=== PATIENT | female | born 1990 | race Caucasian/White ===

== ENCOUNTER 2019-12-27 06:26 | Day surgery (SDC) | payer MEDICAID, SELFPAY ==
[2019-12-26 08:12] VITALS: BMI 39.4
[2019-12-27 06:49] LABS: OR HCG Qualitative Urine Negative (Negative)
[2019-12-27 06:51] VITALS: BP 112/66; PULSE 95; RESP 18; TEMP 36.1; O2SAT 97
[2019-12-27] MEDS: sodium chloride 0.9% 1,000 ML 30 ML IV (07:14)
--- NOTE | 2019-12-27 07:18 | P.ANES_ITS ---
Pre-Anesthetic Assessment Pre-Anesthetic Assessment: Height/Weight: Height 1.63 m Weight 104.326 kg Temp Pulse Resp BP Pulse Ox 97.0 F L 95 18 112/66 97 12/27/19 06:51 12/27/19 06:51 12/27/19 06:51 12/27/19 06:51 12/27/19 06:51 Preop Diagnosis: Left Carpal Tunnel syndrome Proposed Procedure: Operation Date: 12/27/19 07:50 Proposed Procedures p Carpal Tunnel Release 05186 G56.01(Left) - Erasto Swartz MD Familial anesthetic complications: none Was Beta Brett taken within 24 hour s: N/A Last intake: Intake Last Liquid Date 12/26/19 Last Liquid Time 20:00 Last Solid Date 12/26/19 Last Solid Time 20:00 Social: Social History: No alcohol Comment: Vapes multiple times per days Exam: Pre-Anes Outpt Exam: alert, oriented x 3, clear to auscultation bilaterally and regular rate & rhythm Airway: Cervical ROM: WNL MP: 1 Dentition: Full Pulmonary: Pulmonary: URI Comments: Sinusitis 2-3 weeks ago, no coughing, no fever, resolved now CV/HEM: CV/HEM: None reported : : None reported Hepatic: Comments: fatty liver disease GI: GI: None reported Metabolic: Metabolic: Morbid obesity Musc/skel: [facility] [place]/skel: None reported Neuropsych: Neuropsych: None reported Anesthetic Plan: ASA status: II Anesthesia: MAC Meds/Allergies Current Medications: Current Medications Generic Name Dose Route Start Last Admin Trade Name Freq PRN Reason Stop Dose Admin Sodium Chloride 1,000 mls @ 30 ml s/hr 12/27/19 06:45 12/27/19 07:14 Sodium Chloride 0.9% IV 12/28/19 06:44 30 mls/hr .Q24H GABINO Administration PFSH Anesthesia PFSH: Family History (Updated 12/19/19 @ 08:20 by Fay Hayes LPN) Other Diabetes Heart disease Hypertension Stroke Social History (Updated 12/19/19 @ 08:21 by Fay Hayes LPN) Smoking and tobacco status: current every day smoker e-cigarettes E-Cigarette Details: vaporizer device and with nicotine Alcohol intake: current Alcohol intake frequency: 0-2 Drinks per Day Female Reproductive History: Date of last menstrual period: 05/18/18 Data Anesthesia Other Labs: Laboratory Results - last 48 hr 12/27/19 06:38 Urine HCG, Qual Negative Cardiac Studies: No Data to Display
--- NOTE | 2019-12-27 08:22 | PM.HPUD ---
H&P update H&P Update: DATE OF SURGERY/PROCEDURE: 12/27/19 DATE H&P PERFORMED: 12/19/19 H&P UPDATE INFORMATION: H&P completed within last 30 days and No changes to prior documentation PREOP DIAGNOSIS: Left carpal tunnel syndrome PRIMARY INDICATION FOR PROCEDURE: Left arm pain and numbness. EMG nerve conduction studies showing carpal tunnel syndrome has failed conservative management. PLANNED PROCEDURE: Operation Date: 12/27/19 07:50 Proposed Procedures p Carpal Tunnel Release [id number] G56.01(Left) - Erasto Swartz MD Full H&P HPI: PRIMARY INDICATION/DIAGNOSIS FOR SURGICAL PROCEDURE: The patient is here for a scheduled left carpal tunnel release. Been previously counseled Medications/Allergies: Current Medications: Current Medications Generic Name Dose Route Start Last Admin Trade Name Freq PRN Reason Stop Dose Admin Sodium Chloride 1,000 mls @ 30 ml s/hr 12/27/19 06:45 12/27/19 07:14 Sodium Chloride 0.9% IV 12/28/19 06:44 30 mls/hr .Q24H GABINO Administration Perinent History: Family History: Family History (Updated 12/19/19 @ 08:20 by Fay Hayes LPN) Other Diabetes Heart disease Hypertension Stroke Social History: Social History Smoking and tobacco status: current every day smoker e-cigarettes E-Cigarette Details: vaporizer device and with nicotine Alcohol intake: current Alcohol intake frequency: 0-2 Drinks per Day
[2019-12-27 09:23] VITALS: BP 95/60; PULSE 89; RESP 18; TEMP 36.4; O2SAT 96
--- NOTE | 2019-12-27 09:32 | P.OP_ITS ---
Operative Report Date of procedure: 12/27/19 Pre-op Diagnosis: Left carpal tunnel syndrome Post-op diagnosis: same Post-op Findings: No masses or space-occupying lesions are identified within the carpal tunnel Procedure Done: Left carpal tunnel release Pathology: none sent Surgeon: Erasto Swartz Anesthesia: Local (Kathrine block) Estimated blood loss (mL): 5 Tourniquet time (min): 25 Complications: None Findings: No masses or space-occupying lesions were seen within the carpal tunnel Condition: stable Disposition: same day Procedure: Patient was taken to the operating room and anesthesia provided by the anesthesia service. She was prepped and draped with the arm exposed. A timeout was performed. A 3 cm long incision was made in line with the fourth ray from the distal edge of the carpal tunnel extending proximally. The subcutaneous fat and palmar fascia was divided with a scalpel blade. Under l oupe magnification the ulnar neurovascular bundle was identified distally. A hemostat could be passed under the transverse carpal ligament allowing the distal 25% to be divided. A slotted guide was then passed beneath the transverse carpal ligament and the middle 50% divided. Blunt scissors were then passed over the guide freeing the proximal ligament. The tourniquet was deflated. Hemostasis provided with electrocautery. Wound edges were infiltrated with 10 cc of a half percent Marcaine solution. Skin edges were reapproximated with 3-0 Prolene. Sterile dressings were applied. The patient was taken to the recovery room in stable condition
[2019-12-27 09:47] VITALS: BP 105/81; PULSE 87; RESP 18; TEMP 36.4; O2SAT 98
== END 2019-12-27 09:58 | disposition home or self-care (01) ==
PROVIDERS: Anesthesiology; PCP Family Medicine; Visit Provider Orthopaedic Surgery
PROC: (CPT 64721; principal; 2019-12-27 07:50)
DX: G56.02 Carpal tunnel syndrome, left upper limb (principal); F17.290 Nicotine dependence, other tobacco product, uncomplicated; Z82.49 Family history of ischemic heart disease and other diseases of the circulatory system; Z83.3 Family history of diabetes mellitus; E66.01 Morbid (severe) obesity due to excess calories; Z68.39 Body mass index [BMI] 39.0-39.9, adult
CPT/HCPCS: 64721; 12345; 81025; 84703; J0690; J2001; J2704; J3010; J3490; J7030

== ENCOUNTER 2019-12-31 19:58 | Emergency (ER) | payer MEDICAID, SELFPAY ==
[2019-12-31] VITALS (9 sets, daily range): BP systolic 106–138; BP diastolic 69–83; PULSE 101–113; RESP 12–38; TEMP 37.2; O2SAT 83–97; BMI 40.3
--- NOTE | 2019-12-31 20:28 | ED_ITS ---
Entered by Luz Land, acting as scribe for Jaime Mendoza DO HPI - Fever General: Chief Complaint: Fever Stated Complaint: FEVER/CP POST OP Time Seen by Provider: 12/31/19 20:26 Source: patient and family Mode of arrival: ambulatory History of Present Illness: HPI Narrative: 29 y/o female presents to the ED with complaint of fever and sore throat. Pt states she had carpal tunnel sx last week. Her symptoms started shortly after. She denies any complications around the surgical site. She has had chills and congestion. MD elicited complaint: fever Onset (ago): day(s) Context: recent procedure Relieving factors: nothing Associated symptoms: Reports chills, headache(s), nasal congestion and sore throat; Deny abdominal pain, dysuria, nausea or vomiting Review of Systems Const: Reports: fever, chills, body aches and fatigue Eyes: Denies: change in vision or blurry vision ENMT: Reports: nasal congestion; Denies: swelling of lips/tongue, bleeding gums, dental pain, Change in hearing or nose bleeds Card: Denies: palpitations, irregular heart rhythm, edema, swelling of feet/ankles, shortness of breath on exertion or shortness of breath when lying down Resp: Denies: shortness of breath or wheezing GI: Denies: abdominal pain, nausea, vomiting, rectal pain, blood in stool or black tarry stool : Denies: painful urination, urinary frequency, urinary urgency or blood in urine Musc: Denies: neck pain, back pain, redness or joint warmth Skin/Breast: Denies: rash, itching or redness Neuro: Reports: headache; Denies: dizziness Psych: Denies: anxiety PFSH ED PFSH: Statuses (acute, chronic, etc) shown below reflect problem list status as previously entered and may not be historically accurate Family History (Updated 12/19/19 @ 08:20 by Fay Hayes LPN) Other Diabetes Heart disease Hypertension Stroke Social History (Updated 12/19/19 @ 08:21 by Fay Hayes LPN) Smoking and tobacco status: current every day smoker e-cigarettes E-Cigarette Details: vaporizer device and with nicotine Alcohol intake: current Alcohol intake frequency: 0-2 Drinks per Day Female Reproductive History: Date of last menstrual period: 05/29/18 Physical Exam Const: GENERAL APPEARANCE: well developed ORIENTATION/CONSCIOUSNESS: Yes oriented to person, Yes oriented to place and Yes oriented to time HENMT: COMMON NORMALS: normocephalic, external ears normal and external nose normal HEAD & SCALP: normocephalic; no scalp tenderness FACE & SINUS: normal facial exam NOSE: external nose normal and no nasal discharge EXTERNAL EAR: Yes external ears normal MOUTH: tongue normal and other (posterior oral pharynx redness) TEETH & GINGIVA: no abnormal tooth and associated gingiva THROAT: posterior oropharynx normal; no peritonsillar mass Eye: COMMON NORMALS: PERRL, EOMs intact bilaterally and conjunctivae normal EYELID: eyelids normal CONJUNCTIVA: Yes conjunctivae normal PUPIL: Yes PERRL Neck/C-Spine: COMMON NORMALS: full ROM GENERAL: No tracheal deviation CERVICAL SPINE: Yes normal cervical lordosis and No cervical spine tenderness Chest: COMMONS NORMALS: inspection of chest normal CHEST: No tenderness Resp: COMMON NORMALS: clear to auscultation bilaterally EFFORT & INSPECTION: No tachypneic, No respiratory distress, No retractions, No uses accessory muscles and No tracheal deviation AUSCULTATION: clear to auscultation bilaterally, no rhonchi, no wheezes and lung sounds not diminished Cardio: COMMON NORMALS: regular rate and regular rhythm RATE: regular rate RHYTHM: regular rhythm HEART SOUNDS: no murmurs PERIPHERAL PULSES: radial pulses present GI: INSPECTION: No abdominal distension AUSCULTATION: No hyperactive bowel sounds and No hypoactive bowel sounds PALPATION: No guarding and No rigid PERCUSSION: no dullness to percussion and no tympanic to percussion : COMMON NORMALS: Yes no CVA tenderness BLADDER/KIDNEY EXAM: Yes no CVA tenderness Back/Pelvis: COMMON NORMALS: no CVA tenderness Extremity: LEFT UPPER EXTREMITY: Yes wrist (carpal tunnel inscision healing well) Neuro: SENSORIUM/ORIENTATION: Yes oriented to person, Yes oriented to place and Yes oriented to time Psych: COMMON NORMALS: mental status grossly normal Skin: COMMON NORMALS: no rashes or lesions noted GENERAL SKIN EXAM: no rashes or lesions noted Course ED course: Patient was mildly tachycardic. She had an increased temperature. Chest x-ray was negative. Flu and strep swabs are negative. Because of this, lab work was drawn. White blood cell count is 5. Other labs are benign. D- dimer was drawn because of tachycardia and mildly low oxygen, and it was negative. She had improvement while she was here. She likely has a viral illness. She will be allowed home. Vital Signs: Vital signs: Vital Signs Temperature 98.9 F 12/31/19 20:19 Pulse Rate 87 01/01/20 00:36 Respiratory Rate 16 01/01/20 00:36 Blood Pressure 109/67 01/01/20 00:36 Pulse Oximetry 96 01/01/20 00:36 MDM - Fever Lab Data: Labs: Lab Results 12/31/19 12/31/19 12/31/19 Range/Units 20:50 20:50 21:38 WBC 5.0 (4.0-10.0) 10^3/ uL RBC 4.29 (4.1-5.3) 10^6/u L Hgb 13.1 (11.5-15.3) g/dL Hct 38.7 (37.0-47.0) % MCV 90.2 (81-99) fL MCH 30.5 (28.0-34.0) pg MCHC 33.9 (30.0-36.0) g/dL RDW 12.1 (12.1-15.1) % Plt Count 169 (130-400) 10^3/c mm MPV 10.5 H (7.4-10.4) fL Neut % (Auto) 72.4 % Lymph % (Auto) 15.6 % [place] % (Auto) 10.8 % Eos % (Auto) 0.4 % Baso % (Auto) 0.2 % Neut # (Auto) 3.6 (1.8-7.7) 10^3/u L Lymph # (Auto) 0.8 (0.8-4.8) 10^3/u L [place] # (Auto) 0.5 (0.2-0.9) 10^3/u L Eos # (Auto) 0.0 (0.0-0.8) 10^3/u L Baso # (Auto) 0.0 (0.0-0.1) 10^3/u L Nucleated RBC % (a uto) 0 % Nucleated RBCs # 0.0 /100WBC D-Dimer (0-0.59) ug/mIFE U Sodium (136-145) mmol/L Potassium (3.5-5.1) mmol/L Chloride (98-107) mmol/L Carbon Dioxide (22-29) mmol/L Anion Gap (5-19) BUN (6-20) mg/dL Creatinine (0.5-0.9) mg/dL GFR Calculation (90-130) mL/min Glucose (74-109) mg/dL Calcium (8.5-10.5) mg/dL Total Bilirubin (0.15-1.2) mg/dL AST (0-32) U/L ALT (0-33) U/L Alkaline Phosphata se (35-105) IU/L Troponin T Baselin e (0-10) ng/mL Troponin T 120 Min tribal (0-10) ng/mL Delta Troponin T (0-10) ABS# Total Protein (6.6-8.7) g/dL Albumin (3.5-5.2) g/dL Globulin (1.3-4.6) g/dL HCG, Qual (Negative) Urine Color (Yellow) Urine Appearance (CLEAR) Urine pH (5-7) Ur Specific Gravit y (1.005-1.030) Urine Protein (Negative) Urine Glucose (UA) (Normal) Urine Ketones (Negative) Urine Occult Blood (Negative) Urine Nitrate (Negative) Urine Bilirubin (NEGATIVE) Urine Urobilinogen (Negative) mg/dL Ur Leukocyte Preethi ase (Negative) Urine RBC (0-2) /hpf Urine WBC (0-5) /hpf Ur Squamous Epith Cells (0-5) Urine Bacteria (NONE) Urine Mucus Influenza Type A A g Negative (Negative) POC Influenza B Ag Negative (Negative) Group A Strep Rapi d Negative (Negative) 12/31/19 12/31/19 12/31/19 Range/Units 21:38 21:38 21:38 WBC (4.0-10.0) 10^3/ uL RBC (4.1-5.3) 10^6/u L Hgb (11.5-15.3) g/dL Hct (37.0-47.0) % MCV (81-99) fL MCH (28.0-34.0) pg MCHC (30.0-36.0) g/dL RDW (12.1-15.1) % Plt Count (130-400) 10^3/c mm MPV (7.4-10.4) fL Neut % (Auto) % Lymph % (Auto) % [place] % (Auto) % Eos % (Auto) % Baso % (Auto) % Neut # (Auto) (1.8-7.7) 10^3/u L Lymph # (Auto) (0.8-4.8) 10^3/u L [place] # (Auto) (0.2-0.9) 10^3/u L Eos # (Auto) (0.0-0.8) 10^3/u L Baso # (Auto) (0.0-0.1) 10^3/u L Nucleated RBC % (a uto) % Nucleated RBCs # /100WBC D-Dimer 0.40 (0-0.59) ug/mIFE U Sodium 136 (136-145) mmol/L Potassium 3.8 (3.5-5.1) mmol/L Chloride 97 L (98-107) mmol/L Carbon Dioxide 25 (22-29) mmol/L Anion Gap 17.8 (5-19) BUN 13 (6-20) mg/dL Creatinine 0.9 (0.5-0.9) mg/dL GFR Calculation 74.6 L (90-130) mL/min Glucose 114 H (74-109) mg/dL Calcium 9.8 (8.5-10.5) mg/dL Total Bilirubin 0.4 (0.15-1.2) mg/dL AST 28 (0-32) U/L ALT 32 (0-33) U/L Alkaline Phosphata se 71 (35-105) IU/L Troponin T Baselin e 6 (0-10) ng/mL Troponin T 120 Min tribal (0-10) ng/mL Delta Troponin T (0-10) ABS# Total Protein 7.5 (6.6-8.7) g/dL Albumin 4.4 (3.5-5.2) g/dL Globulin 3.1 (1.3-4.6) g/dL HCG, Qual (Negative) Urine Color (Yellow) Urine Appearance (CLEAR) Urine pH (5-7) Ur Specific Gravit y (1.005-1.030) Urine Protein (Negative) Urine Glucose (UA) (Normal) Urine Ketones (Negative) Urine Occult Blood (Negative) Urine Nitrate (Negative) Urine Bilirubin (NEGATIVE) Urine Urobilinogen (Negative) mg/dL Ur Leukocyte Preethi ase (Negative) Urine RBC (0-2) /hpf Urine WBC (0-5) /hpf Ur Squamous Epith Cells (0-5) Urine Bacteria (NONE) Urine Mucus Influenza Type A A g (Negative) POC Influenza B Ag (Negative) Group A Strep Rapi d (Negative) 12/31/19 12/31/19 12/31/19 Range/Units 23:18 23:18 23:27 WBC (4.0-10.0) 10^3/ uL RBC (4.1-5.3) 10^6/u L Hgb (11.5-15.3) g/dL Hct (37.0-47.0) % MCV (81-99) fL MCH (28.0-34.0) pg MCHC (30.0-36.0) g/dL RDW (12.1-15.1) % Plt Count (130-400) 10^3/c mm MPV (7.4-10.4) fL Neut % (Auto) % Lymph % (Auto) % [place] % (Auto) % Eos % (Auto) % Baso % (Auto) % Neut # (Auto) (1.8-7.7) 10^3/u L Lymph # (Auto) (0.8-4.8) 10^3/u L [place] # (Auto) (0.2-0.9) 10^3/u L Eos # (Auto) (0.0-0.8) 10^3/u L Baso # (Auto) (0.0-0.1) 10^3/u L Nucleated RBC % (a uto) % Nucleated RBCs # /100WBC D-Dimer (0-0.59) ug/mIFE U Sodium (136-145) mmol/L Potassium (3.5-5.1) mmol/L Chloride (98-107) mmol/L Carbon Dioxide (22-29) mmol/L Anion Gap (5-19) BUN (6-20) mg/dL Creatinine (0.5-0.9) mg/dL GFR Calculation (90-130) mL/min Glucose (74-109) mg/dL Calcium (8.5-10.5) mg/dL Total Bilirubin (0.15-1.2) mg/dL AST (0-32) U/L ALT (0-33) U/L Alkaline Phosphata se (35-105) IU/L Troponin T Baselin e (0-10) ng/mL Troponin T 120 Min tribal 6.00 (0-10) ng/mL Delta Troponin T 0 (0-10) ABS# Total Protein (6.6-8.7) g/dL Albumin (3.5-5.2) g/dL Globulin (1.3-4.6) g/dL HCG, Qual Negative (Negative) Urine Color Yellow (Yellow) Urine Appearance Cloudy (CLEAR) Urine pH 5 (5-7) Ur Specific Gravit y 1.020 (1.005-1.030) Urine Protein Neg (Negative) Urine Glucose (UA) Norm (Normal) Urine Ketones 1+ H (Negative) Urine Occult Blood Neg (Negative) Urine Nitrate Negative (Negative) Urine Bilirubin Neg (NEGATIVE) Urine Urobilinogen 1 H (Negative) mg/dL Ur Leukocyte Preethi ase Negative (Negative) Urine RBC 0-4 H (0-2) /hpf Urine WBC 0-4 H (0-5) /hpf Ur Squamous Epith Cells 15-25 H (0-5) Urine Bacteria 1+ H (NONE) Urine Mucus 3+ Influenza Type A A g (Negative) POC Influenza B Ag (Negative) Group A Strep Rapi d (Negative) Discharge Plan Discharge Patient Disposition: Home, Self-Care Clinical Impression: Viral infection Condition: Stable Prescriptions: No Action ibuprofen 200 mg capsule 200 mg PO Q6H PRN (Reason: Pain) RF: 0 Claritin 10 mg Tablet 10 mg PO DAILY PRN (Reason: Allergy Symptoms) RF: 0 [place] 5-325 mg tablet 1 tab PO Q4H PRN (Reason: pain) Qty: 20 RF: 0 Discharge Orders: Discharge Order (Routine); Ordered 01/01/20 Ordered By: Jaime Mendoza Referrals: Georgia Wood MD [Primary Care Provider] - 4-7 days Discharge Diet: Advance as tolerated Discharge Activity: Increase activity as tolerated Patient Instructions: Viral Syndrome (ED) Interventions: ED Discharge Assessment Last Done: 01/01/20 00:36 Discharge Date/Time: 01/01/20 00:38 Coding Level of Care Code ED Placement Assistant for Chg Fwd The documentation recorded by the Emery dan Ashley, accurately reflects the service I personally performed and the decisions made by Reji talbert Jeremy John, DO Dec 31, 2019 19:58
--- NOTE | 2019-12-31 20:43 | XR_ITS ---
WS: [id number] CHEST 2 VIEWS HISTORY: cough COMPARISON: None available. Lungs: Clear with no abnormality. No pleural effusion or pneumothorax. Cardiac size: Normal. Mediastinum/Aorta: Normal mediastinum. Bones: Normal. XR/XR chest 2V* [id number] IMPRESSION: Normal chest.
[2019-12-31 21:28] LABS: Influenza A by IFA Negative (Negative); Influenza B by IFA Negative (Negative)
[2019-12-31 21:29] LABS: Rapid Strep A Test Negative (Negative)
--- NOTE | 2019-12-31 21:35 | ECG_ITS ---
Measurements Intervals [place] Rate: 98 P: 61 LA: 145 QRS: 40 QRSD: 98 T: 36 QT: 327 QTc: [address] & T-WAVE ABNORMALITY No previous ECG available for comparison Electronically Signed On 01-01-2020 20:55:43 [employer]ANT [employer] ENGINE[employer] by Ramon Carcamo M.D. [email or web address]
[2019-12-31 21:54] LABS: Basophils % 0.2 %; Eosinophils % 0.4 %; Hematocrit 38.7 % (37.0-47.0); Hemoglobin 13.1 g/dL (11.5-15.3); Lymphocytes # 0.8 10^3/uL (0.8-4.8); Lymphocytes % 15.6 %; Mean Corpuscular HGB Conc 33.9 g/dL (30.0-36.0); Mean Corpuscular Hemoglobin 30.5 pg (28.0-34.0); Mean Corpuscular Volume 90.2 fL (81-99); Mean Platelet Volume 10.5 fL (7.4-10.4); Monocytes # 0.5 10^3/uL (0.2-0.9); Monocytes % 10.8 %; Neutrophils # 3.6 10^3/uL (1.8-7.7); Neutrophils % 72.4 %; Nucleated Red Blood Cells % 0 %; Platelet Count 169 10^3/cmm (130-400); Red Blood Count 4.29 10^6/uL (4.1-5.3); Red Cell Distribution Width 12.1 % (12.1-15.1)
[2019-12-31 22:09] LABS: Alanine Aminotransferase 32 U/L (0-33); Albumin Level 4.4 g/dL (3.5-5.2); Alkaline Phosphatase 71 IU/L (35-105); Anion Gap 17.8 (5-19); Aspartate Amino Transferase 28 U/L (0-32); Blood Urea Nitrogen 13 mg/dL (6-20); Calcium 9.8 mg/dL (8.5-10.5); Carbon Dioxide 25 mmol/L (22-29); Chloride 97 mmol/L (98-107); Globulin 3.1 g/dL (1.3-4.6); Glomerular Filtration Rate 74.6 mL/min (90-130); Glucose 114 mg/dL (74-109); Potassium 3.8 mmol/L (3.5-5.1); Sodium 136 mmol/L (136-145); Total Bilirubin 0.4 mg/dL (0.15-1.2); Total Protein 7.5 g/dL (6.6-8.7)
[2019-12-31 22:11] LABS: Troponin(5th) Baseline 6 ng/mL (0-10)
[2019-12-31 23:30] LABS: HCG Qualitative Urine. Negative (Negative)
[2019-12-31 23:31] LABS: Glucose Urine UA Norm (Normal); Ketones Urine 1+ (Negative); Protein Urine Neg (Negative); Urine Appearance Cloudy (CLEAR); Urine Color Yellow (Yellow); pH Urine 5 (5-7)
[2019-12-31 23:32] LABS: Add Urine Microscopic? YES; Bilirubin Urine Neg (NEGATIVE); Blood Urine Neg (Negative); Leukocyte Esterase Urine Negative (Negative); Nitrate Urine Negative (Negative); Urobilinogen Urine 1 mg/dL (Negative)
--- NOTE | 2019-12-31 23:35 | ECG_ITS ---
Measurements Intervals [place] Rate: 95 P: 61 OR: 146 QRS: 40 QRSD: 88 T: 37 QT: 325 QTc: [address] & T-WAVE ABNORMALITY No previous ECG available for comparison Electronically Signed On 01-01-2020 21:05:18 RUBBER MOLDER by Ramon Carcamo M.D. [email or web address]
[2019-12-31 23:37] LABS: Bacteria Urine 1+; Mucus Urine 3+; RBC Urine 0-4 /hpf (0-2); Squamous Epithelial Cell Urine 15-25 (0-5); WBC Urine 0-4 /hpf (0-5)
[2019-12-31 23:50] LABS: Troponin 5 2HR Delta 0 ABS# (0-10)
[2020-01-01] VITALS: BP 101/63; PULSE 107; RESP 20; O2SAT 89
[2020-01-01 00:30] VITALS: BP 109/67
[2020-01-01 00:36] VITALS: BP 109/67; PULSE 87; RESP 16; O2SAT 96
== END 2020-01-01 00:38 | disposition home or self-care (01) ==
PROVIDERS: Emergency Provider Emergency Medicine; PCP Family Medicine
DX: B34.9 Viral infection, unspecified (principal); F17.210 Nicotine dependence, cigarettes, uncomplicated
CPT/HCPCS: 36415; 71046; 80053; 81001; 81025; 84484; 85025; 85378; 87081; 87804; 87880; 93005; 99283; 99284

== ENCOUNTER 2020-01-10 06:00 | Day surgery (SDC) | payer MEDICAID, SELFPAY ==
[2020-01-09 10:19] VITALS: BMI 38.6
[2020-01-10 06:12] VITALS: BP 117/76; PULSE 94; RESP 18; TEMP 36.2; O2SAT 96
--- NOTE | 2020-01-10 06:41 | PM.HPUD ---
H&P update H&P Update: DATE OF SURGERY/PROCEDURE: 01/10/20 DATE H&P PERFORMED: 12/19/19 H&P UPDATE INFORMATION: H&P completed within last 30 days PREOP DIAGNOSIS: Right carpal tunnel syndrome PRIMARY INDICATION FOR PROCEDURE: Pain and numbness right upper extremity PLANNED PROCEDURE: Operation Date: 01/10/20 07:00 Proposed Procedures p Carpal Tunnel Release 93511 G56.02(Right) - Erasto Swartz MD Full H&P Perinent History: Family History: Family History (Updated 12/19/19 @ 08:20 by Fay Hayes LPN) Other Diabetes Heart disease Hypertension Stroke Social History: Social History Smoking and tobacco status: current every day smoker e-cigarettes E-Cigarette Details: vaporizer device and with nicotine Alcohol intake: current Alcohol intake frequency: 0-2 Drinks per Day
--- NOTE | 2020-01-10 06:43 | P.ANESUD_ITS ---
Pre-Anesthetic Update Pre-Anesthetic Assessment: Date of Surgery/Procedure: 01/10/20 Preop Kianna gnosis: Right carpal tunnel syndrome Proposed Procedure: Operation Date: 01/10/20 07:00 Proposed Procedures p Carpal Tunnel Release 93785 G56.02(Right) - Erasto Swartz MD Last Intake: Intake Last Liquid Date 01/09/20 Last Solid Date 01/09/20 Vitals: Temperature 97.1 F L 01/10/20 06:12 Temperature Source Temporal Artery S can 01/10/20 06:12 Pulse Rate 94 01/10/20 06:12 Pulse Rhythm 01/10/20 06:15 Pulse Strength 3+ Normal 01/10/20 06:15 Respiratory Rate 18 01/10/20 06:12 Blood Pressure 117/76 01/10/20 06:12 Blood Pressure Yasmine n 89 01/10/20 06:12 Pulse Oximetry 96 01/10/20 06:12 Oxygen Delivery Me thod 01/10/20 06:15 Cardiac Studies: No Data to Display
[2020-01-10 07:15] LABS: OR HCG Qualitative Urine Negative (Negative)
[2020-01-10] MEDS: sodium chloride 0.9% 1,000 ML 30 ML IV (07:26)
--- NOTE | 2020-01-10 07:45 | PM.OP ---
Operative Report Date of procedure: January 10, 2020 Pre-op Diagnosis: Right carpal tunnel syndrome Post-op diagnosis: same Procedure Done: Right carpal tunnel release Pathology: none sent Surgeon: Erasto Swartz Anesthesia: Local (Kathrine block) Estimated blood loss (mL): 5 Tourniquet time (min): 20 Complications: None Findings: No masses or space-occupying lesions were seen within the carpal tunnel Procedure: Patient was taken to the operating room and anesthesia provided by the anesthesia service. She was prepped and draped with the arm exposed. A timeout was performed. A 3 cm long incision was made in line with the fourth ray from the distal edge of the carpal tunnel extending proximally. The subcutaneous fat and palmar fascia was divided with a scalpel blade. Under loupe magnification the ulnar neurovascular bundle was identified distally. A hemostat could be passed under the transverse carpal ligament allowing the distal 25% to be divided. A slotted guide was then passed beneath the transverse carpal ligament and the middle 50% divided. Blunt scissors were then passed over the guide freeing the proximal ligament. The tourniquet was deflated. Hemostasis provided with electrocautery. Wound edges were infiltrated with 10 cc of a half percent Marcaine solution. Skin edges were reapproximated with 3-0 Prolene. Sterile dressings were applied. The patient was taken to the recovery room in stable condition
[2020-01-10 07:48] VITALS: BP 112/72; PULSE 82; RESP 16; TEMP 36.1; O2SAT 97
[2020-01-10 08:18] VITALS: BP 121/76; PULSE 82; RESP 16; TEMP 36.1; O2SAT 97
[2020-01-10 08:37] VITALS: RESP 16; O2SAT 97
[2020-01-10] MEDS: morphine 4 mg/mL SDV 1 mL IVP (08:37)
[2020-01-10 08:48] VITALS: BP 105/65; PULSE 79; RESP 18; O2SAT 94
== END 2020-01-10 09:15 | disposition home or self-care (01) ==
PROVIDERS: Anesthesiology; PCP Family Medicine; Visit Provider Orthopaedic Surgery
PROC: (CPT 64721; principal; 2020-01-10 07:00)
DX: G56.01 Carpal tunnel syndrome, right upper limb (principal); Z82.49 Family history of ischemic heart disease and other diseases of the circulatory system; Z83.3 Family history of diabetes mellitus; F17.290 Nicotine dependence, other tobacco product, uncomplicated
CPT/HCPCS: 64721; 12345; 81025; 84703; 96374; J0690; J2001; J2250; J2270; J2704; J3010; J3490; J7030

== ENCOUNTER 2020-06-15 11:56 | Emergency (ER) | payer MEDICAID, SELFPAY ==
[2020-06-15 12:06] VITALS: BP 134/73; PULSE 85; RESP 18; TEMP 36.7; O2SAT 98; BMI 40.7
--- NOTE | 2020-06-15 12:12 | W.ED.ABDPA2 ---
HPI - Abdominal Pain General: Chief Complaint: Abdominal Pain Stated Complaint: LOWER ABD PAIN Time Seen by Provider: 06/15/20 12:11 History of Present Illness: HPI narrative: Patient is a 29-year-old female who comes to the ED with abdominal pain. Patient says she has a history of getting ruptured ovarian cysts and says she has had approximately 5 in her lifetime. She states this pain is very similar to her previous ruptured ovarian cyst. She started having some mild cramping about a week ago. Patient states she still has not had her period and is currently over 1 to 2 weeks late. She has not taken an at home test. This morning when she woke up her pain got worse and more intense in the lower abdomen/pelvic region. She rates the pain 6 out of 10 when it is constant and then it has moments of getting sharper and more intense and during that time it is a 9 out of 10. Patient does states she has had some white to clear vaginal discharge but no bleeding. She also endorses having some dysuria for the past approximately 3 days. Denies fever, chills, chest pain, shortness of breath,constipation, hematuria. Patient does endorse having diarrhea for the past several days. No blood in the stool. Associated Symptoms: Reports diarrhea and dysuria; Denies chills, constipation, fever(s), hematochezia, hematuria, nausea and vomiting Related Data: Date of Last Menstrual Period: 05/29/18 Review of Systems Const: Denies: fever(s), chills or fatigue Eyes: Denies: change in vision or eye discomfort ENMT: Denies: throat pain, odynophagia, nasal discharge or nasal congestion Card: Denies: chest pain, palpitations, edema, swelling of feet/ankles, dyspnea on exertion or orthopnea Resp: Denies: dyspnea, productive cough or non-productive cough GI: Reports: abdominal pain and diarrhea; Denies: nausea, vomiting, constipation or hematochezia : Reports: dysuria, vaginal discharge (white/clear) and pelvic pain; Denies: flank pain or hematuria Musc: Denies: neck pain, back pain or extremity swelling Skin/Breast: Denies: rash or new lesions Neuro: Denies: headache(s), numbness in extremities or weakness in extremities PFSH ED PFSH: Family History Other Diabetes Heart disease Hypertension Stroke Social History Smoking and tobacco status: current every day smoker e-cigarettes E-Cigarette Details: vaporizer device and with nicotine Alcohol intake: current Alcohol intake frequency: 0-2 Drinks per Day Female Reproductive History: Date of last menstrual period: 05/29/18 Physical Exam Const: COMMON NORMALS: no acute distress, patient oriented x3, healthy appearing and alert GENERAL APPEARANCE: cooperative and comfortable HENMT: COMMON NORMALS: normocephalic HEAD & SCALP: normocephalic MOUTH: Normal oral and palatal mucosa present THROAT: posterior oropharynx normal and uvula midline Eye: COMMON NORMALS: Equal, round and reactive pupils present PUPIL: Yes Equal, round and reactive pupils present Neck/C-Spine: COMMON NORMALS: supple GENERAL: Yes normal visual inspection Resp: COMMON NORMALS: normal respiratory effort, No retractions, No use of accessory muscles and clear to auscultation bilaterally AUSCULTATION: clear to auscultation bilaterally Cardio: COMMON NORMALS: regular rate, regular rhythm, S1 normal heart sound present, S2 normal heart sound present, No gallops present (Cardio), No clicks present (Cardio), No murmurs present (Cardio) and Peripheral pulses 2+ throughout RATE: regular rate RHYTHM: regular rhythm HEART SOUNDS: S1 normal heart sound present and S2 normal heart sound present PERIPHERAL PULSES: Peripheral pulses 2+ throughout GI: COMMON NORMALS: Normal to inspection, nondistended, normoactive bowel sounds present, Soft to palpation, non-tender and no masses PALPATION: Yes Soft to palpation and Yes Bladder palpation abnormal : COMMON NORMALS: Yes no CVA tenderness BLADDER/KIDNEY EXAM: Yes no CVA tenderness and Yes Bladder palpation abnormal Bladder abnormal details: tender Back/Pelvis: COMMON NORMALS: no CVA tenderness Extremity: COMMON NORMALS: normal to inspection and no pedal edema Neuro: COMMON NORMALS: patient oriented x3 SENSORIUM/ORIENTATION: Yes alert GAIT: Yes Normal gait present Skin: COMMON NORMALS: no rashes or lesions noted GENERAL SKIN EXAM: no rashes or lesions noted and dry skin Course Vital Signs: Vital signs: Vital Signs Temperature 98.0 F 06/15/20 12:06 Pulse Rate 63 06/15/20 16:12 Respiratory Rate 14 06/15/20 16:12 Blood Pressure 113/70 06/15/20 16:12 Pulse Oximetry 99 06/15/20 16:12 MDM - Abdominal Pain MDM Narrative: Medical decision making narrative: Patient is a 29-year-old female comes to the ED with pelvic pain and diarrhea. Patient says she has a past medical history of having ovarian cysts that have ruptured and states that the pain is just like previous incidences. CBC, CMP, UA and lipase were all unremarkable. hCG was negative. Ultrasound of the pelvis showed no acute findings. CT of the abdomen showed some mild colitis. Patient was discharged with a prescription for Bentyl and Flagyl. She was told to follow-up with PCP in 7 to 10 days. Patient understood and agreed with plan. Lab Data: Attestation: I reviewed the patient's lab results. Labs: Lab Results 06/15/20 06/15/20 06/15/20 Range/Units 12:35 12:35 12:35 WBC 7.2 (4.0-10.0) 10^3/ uL RBC 4.34 (4.1-5.3) 10^6/u L Hgb 13.2 (11.5-15.3) g/dL Hct 40.3 (37.0-47.0) % MCV 92.9 (81-99) fL MCH 30.4 (28.0-34.0) pg MCHC 32.8 (30.0-36.0) g/dL RDW 11.9 L (12.1-15.1) % Plt Count 211 (130-400) 10^3/c mm MPV 10.4 (7.4-10.4) fL Neut % (Auto) 61.6 % Lymph % (Auto) 30.0 % [facility] % (Auto) 6.2 % Eos % (Auto) 1.2 % Baso % (Auto) 0.4 % Neut # (Auto) 4.45 (1.8-7.7) 10^3/u L Lymph # (Auto) 2.2 (0.8-4.8) 10^3/u L [facility] # (Auto) 0.5 (0.2-0.9) 10^3/u L Eos # (Auto) 0.1 (0.0-0.8) 10^3/u L Baso # (Auto) 0.0 (0.0-0.1) 10^3/u L Nucleated RBC % (a uto) 0 % Nucleated RBCs # 0.0 /100WBC Sodium 138 (136-145) mmol/L Potassium 4.0 (3.5-5.1) mmol/L Chloride 104 (98-107) mmol/L Carbon Dioxide 25 (22-29) mmol/L Anion Gap 13.0 (5-19) BUN 11 (6-20) mg/dL Creatinine 0.6 (0.5-0.9) mg/dL GFR Calculation 119.0 (90-130) mL/min Glucose 121 H (65-115) mg/dL Calculated Osmolal ity 283 L (285-295) mOsm/k g Calcium 9.2 (8.5-10.5) mg/dL Total Bilirubin 0.4 (0.15-1.2) mg/dL AST 23 (0-32) U/L ALT 23 (0-33) U/L Alkaline Phosphata se 55 (35-105) IU/L Total Protein 6.9 (6.6-8.7) g/dL Albumin 4.6 (3.5-5.2) g/dL Globulin 2.3 (1.3-4.6) g/dL Lipase 22 (13-60) U/L HCG, Qual Negative (Negative) Urine Color (Yellow) Urine Appearance (CLEAR) Urine pH (5-7) Ur Specific Gravit y (1.005-1.030) Urine Protein (Negative) Urine Glucose (UA) (Normal) Urine Ketones (Negative) Urine Blood (Negative) Urine Nitrate (Negative) Urine Bilirubin (NEGATIVE) Urine Urobilinogen (Negative) mg/dL Ur Leukocyte Preethi ase (Negative) 06/15/20 Range/Units 13:13 WBC (4.0-10.0) 10^3/ uL RBC (4.1-5.3) 10^6/u L Hgb (11.5-15.3) g/dL Hct (37.0-47.0) % MCV (81-99) fL MCH (28.0-34.0) pg MCHC (30.0-36.0) g/dL RDW (12.1-15.1) % Plt Count (130-400) 10^3/c mm MPV (7.4-10.4) fL Neut % (Auto) % Lymph % (Auto) % [facility] % (Auto) % Eos % (Auto) % Baso % (Auto) % Neut # (Auto) (1.8-7.7) 10^3/u L Lymph # (Auto) (0.8-4.8) 10^3/u L [facility] # (Auto) (0.2-0.9) 10^3/u L Eos # (Auto) (0.0-0.8) 10^3/u L Baso # (Auto) (0.0-0.1) 10^3/u L Nucleated RBC % (a uto) % Nucleated RBCs # /100WBC Sodium (136-145) mmol/L Potassium (3.5-5.1) mmol/L Chloride (98-107) mmol/L Carbon Dioxide (22-29) mmol/L Anion Gap (5-19) BUN (6-20) mg/dL Creatinine (0.5-0.9) mg/dL GFR Calculation (90-130) mL/min Glucose (65-115) mg/dL Calculated Osmolal ity (285-295) mOsm/k g Calcium (8.5-10.5) mg/dL Total Bilirubin (0.15-1.2) mg/dL AST (0-32) U/L ALT (0-33) U/L Alkaline Phosphata se (35-105) IU/L Total Protein (6.6-8.7) g/dL Albumin (3.5-5.2) g/dL Globulin (1.3-4.6) g/dL Lipase (13-60) U/L HCG, Qual (Negative) Urine Color Yellow (Yellow) Urine Appearance Clear (CLEAR) Urine pH 6.5 (5-7) Ur Specific Gravit y 1.005 (1.005-1.030) Urine Protein Neg (Negative) Urine Glucose (UA) Norm (Normal) Urine Ketones Negative (Negative) Urine Blood Neg (Negative) Urine Nitrate Negative (Negative) Urine Bilirubin Neg (NEGATIVE) Urine Urobilinogen Norm (Negative) mg/dL Ur Leukocyte Preethi ase Negative (Negative) Imaging Data ^: CT Abd/Pel: Attestation: I personally reviewed and interpreted this imaging study as follows: Radiologist's impression: [facility] [address] [place] [address] CT Scan Report Signed Patient: Aparna Mendez Unit #: [id number] : 1990 Age/Sex: 29 / F ADM Date: 06/15/20 Loc: ER Room/Bed: Attending Dr: Ordering Provider/Ordering MD: Oliver Ardon Date of Service: 06/15/20 Procedure(s): CT abdomen pelvis w con* [id number] Accession Number(s): [id number] Report Number: [id number] PROCEDURE INFORMATION: Exam: CT Abdomen And Pelvis With Contrast Exam date and time: 06/15/2020 2:56 PM Age: 29 years old Clinical indication: Generalized; Patient HX: Lower abdominal pain, diarrhea TECHNIQUE: Imaging protocol: Computed tomography of the abdomen and pelvis with intravenous contrast. Radiation optimization: All CT scans at this facility use at least one of these dose optimization techniques: automated exposure control; mA and/or kV adjustment per patient size (includes targeted exams where dose is matched to clinical indication); or iterative reconstruction. Contrast material: OMNIPAQUE 300; Contrast volume: 95 ml; Contrast route: INTRAVENOUS (IV); COMPARISON: US pelvic with transvaginal 06/15/2020 1:45 PM RADIATION DOSE METRICS: Total DLP (mGy-cm): 1574.38 FINDINGS: Mediastinal space: A small hiatal hernia is present. Liver: There is a diffuse decrease in hepatic parenchymal density, consistent with fatty infiltration. The liver is otherwise homogeneous in density. Gallbladder and bile ducts: Normal. No calcified stones. No ductal dilation. Pancreas: Normal. No ductal dilation. Spleen: Normal. No splenomegaly. Adrenals: Normal. No mass. Kidneys and ureters: There is no evidence of hydronephrosis. There is no evidence of renal calcifications. Stomach and bowel: There is no evidence of intestinal perforation or obstruction. The loops of small bowel have an appropriate appearance. The descending and sigmoid colon is collapsed. The wall appears mildly thickened. This appearance may reflect lack of distension versus mild colitis. Appendix: A normal appendix is identified. Intraperitoneal space: Unremarkable. No free air. No significant fluid collection. Vasculature: Unremarkable.No abdominal aortic aneurysm. Lymph nodes: Unremarkable.No enlarged lymph nodes. Bladder: Unremarkable as visualized. There is nonspecific bladder wall thickening. This may be related to incomplete distention. Reproductive: Uterus, ovaries and adnexa are unremarkable. Bones/joints: Unremarkable. No acute fracture. Soft tissues: There is a fat-containing umbilical hernia. CT/CT abdomen pelvis w con* [id number] IMPRESSION: 1. The descending and sigmoid colon is collapsed. The wall appears mildly thickened. This appearance may reflect lack of distension versus mild colitis. 2. Otherwise unremarkable exam. No additional bowel thickening. No obstructing calculi or hydronephrosis. Radiation Dose CTDIVOL = (mGy): DLP = 1574.38 (mGy-cm) Dictated By: Jennifer Reed Signed By: Jennifer Reed Signed Date/Time: 06/15/201547 DD/ 46 Discharge Plan Discharge Patient Disposition: Home, Self-Care Clinical Impression: Colitis Condition: Stable Prescriptions: New Flagyl 500 mg tablet 500 mg PO BID 7 Days Qty: 14 RF: 0 dicyclomine 20 mg tablet 20 mg PO QID Qty: 30 RF: 0 No Action No Known Home Medications RF: 0 Discharge Orders: Discharge Order (Routine); Ordered 06/15/20 Ordered By: Oliver Ardon Referrals: Georgia Wood MD [Primary Care Provider] - Discharge Diet: Regular Discharge Activity: Resume usual activity Activity Restrictions/Additional Instructions: Follow-up with medical provider as directed in about 7 days. Take medications as prescribed. You can also take Tylenol or ibuprofen for any pain or fevers. Drink plenty of fluids and stay hydrated. Return to the ER or your medical provider if condition worsens. Please read and understand discharge instructions. If any questions, please ask. Discharge Date/Time: 06/15/20 16:14 Coding Level of Care Code ED Telephone Service Adviser for Chg Fwd Exam Comprehensive
[2020-06-15] MEDS: sodium chloride 0.9% 500 ML IV (12:37)
[2020-06-15] MEDS: ondansetron 2 mg/ML SDV 2 mL 4 MG IVP (12:38)
[2020-06-15] MEDS: morphine 4 mg/mL SDV 1 mL 2 MG IVP (12:38)
[2020-06-15 12:42] LABS: Basophils % 0.4 %; Eosinophils # 0.1 10^3/uL (0.0-0.8); Eosinophils % 1.2 %; Hematocrit 40.3 % (37.0-47.0); Hemoglobin 13.2 g/dL (11.5-15.3); Lymphocytes # 2.2 10^3/uL (0.8-4.8); Mean Corpuscular HGB Conc 32.8 g/dL (30.0-36.0); Mean Corpuscular Hemoglobin 30.4 pg (28.0-34.0); Mean Corpuscular Volume 92.9 fL (81-99); Mean Platelet Volume 10.4 fL (7.4-10.4); Monocytes # 0.5 10^3/uL (0.2-0.9); Monocytes % 6.2 %; Neutrophils # 4.45 10^3/uL (1.8-7.7); Neutrophils % 61.6 %; Nucleated Red Blood Cells % 0 %; Platelet Count 211 10^3/cmm (130-400); Red Blood Count 4.34 10^6/uL (4.1-5.3); Red Cell Distribution Width 11.9 % (12.1-15.1); White Blood Count 7.2 10^3/uL (4.0-10.0)
[2020-06-15 13:12] LABS: Alanine Aminotransferase 23 U/L (0-33); Albumin Level 4.6 g/dL (3.5-5.2); Alkaline Phosphatase 55 IU/L (35-105); Aspartate Amino Transferase 23 U/L (0-32); Blood Urea Nitrogen 11 mg/dL (6-20); Calcium 9.2 mg/dL (8.5-10.5); Carbon Dioxide 25 mmol/L (22-29); Chloride 104 mmol/L (98-107); Globulin 2.3 g/dL (1.3-4.6); Glucose 121 mg/dL (65-115); Lipase 22 U/L (13-60); Osmolality Calculated 283 mOsm/kg (285-295); Sodium 138 mmol/L (136-145); Total Bilirubin 0.4 mg/dL (0.15-1.2); Total Protein 6.9 g/dL (6.6-8.7)
[2020-06-15 13:14] LABS: HCG, Serum Qual Negative (Negative)
--- NOTE | 2020-06-15 13:20 | USR_ITS ---
PROCEDURE INFORMATION: Exam: US Nonobstetric Pelvis; Complete Exam date and time: 06/15/2020 2:05 PM Age: 29 years old Clinical indication: Pelvic pain; Additional info: Bilateral pelvic pain TECHNIQUE: Imaging protocol: Transabdominal pelvic nonobstetric ultrasound. Complete exam. Real time ultrasound with image documentation. COMPARISON: No relevant prior studies available. FINDINGS: Uterus/cervix: Uterus is normal. Endometrial stripe is 1.1 cm The uterus measures 8.6 cm x 4.3 cm x 5.3 cm Right adnexa: Ovary is normal. No mass. Normal blood flow. 3.2 cm x 2.5 cm x 2.6 cm Left adnexa: Ovary is normal. No mass. Normal blood flow. 2.7 cm x 2 cm x 1.9 cm Free fluid: None. Bladder: Normal. US/US pelvic with transvaginal IMPRESSION: 1. Negative uterus and endometrium. 2. Negative bilateral ovaries
[2020-06-15 14:01] LABS: Add Urine Microscopic? NO
--- NOTE | 2020-06-15 14:02 | PC.NURSE ---
ultrasound in room
[2020-06-15 14:13] LABS: Urine Appearance Clear (CLEAR); Urine Color Yellow (Yellow); pH Urine 6.5 (5-7)
[2020-06-15 14:14] LABS: Bilirubin Urine Neg (NEGATIVE); Blood Urine Neg (Negative); Glucose Urine UA Norm (Normal); Ketones Urine Negative (Negative); Leukocyte Esterase Urine Negative (Negative); Nitrate Urine Negative (Negative); Protein Urine Neg (Negative); Specific Gravity, Urine 1.005 (1.005-1.030); Urobilinogen Urine Norm (Negative)
--- NOTE | 2020-06-15 14:55 | CTR_ITS ---
PROCEDURE INFORMATION: Exam: CT Abdomen And Pelvis With Contrast Exam date and time: 06/15/2020 2:56 PM Age: 29 years old Clinical indication: Generalized; Patient HX: Lower abdominal pain, diarrhea TECHNIQUE: Imaging protocol: Computed tomography of the abdomen and pelvis with intravenous contrast. Radiation optimization: All CT scans at this facility use at least one of these dose optimization techniques: automated exposure control; mA and/or kV adjustment per patient size (includes targeted exams where dose is matched to clinical indication); or iterative reconstruction. Contrast material: OMNIPAQUE 300; Contrast volume: 95 ml; Contrast route: INTRAVENOUS (IV); COMPARISON: US pelvic with transvaginal 06/15/2020 1:45 PM RADIATION DOSE METRICS: Total DLP (mGy-cm): 1574.38 FINDINGS: Mediastinal space: A small hiatal hernia is present. Liver: There is a diffuse decrease in hepatic parenchymal density, consistent with fatty infiltration. The liver is otherwise homogeneous in density. Gallbladder and bile ducts: Normal. No calcified stones. No ductal dilation. Pancreas: Normal. No ductal dilation. Spleen: Normal. No splenomegaly. Adrenals: Normal. No mass. Kidneys and ureters: There is no evidence of hydronephrosis. There is no evidence of renal calcifications. Stomach and bowel: There is no evidence of intestinal perforation or obstruction. The loops of small bowel have an appropriate appearance. The descending and sigmoid colon is collapsed. The wall appears mildly thickened. This appearance may reflect lack of distension versus mild colitis. Appendix: A normal appendix is identified. Intraperitoneal space: Unremarkable. No free air. No significant fluid collection. Vasculature: Unremarkable.No abdominal aortic aneurysm. Lymph nodes: Unremarkable.No enlarged lymph nodes. Bladder: Unremarkable as visualized. There is nonspecific bladder wall thickening. This may be related to incomplete distention. Reproductive: Uterus, ovaries and adnexa are unremarkable. Bones/joints: Unremarkable. No acute fracture. Soft tissues: There is a fat-containing umbilical hernia. CT/CT abdomen pelvis w con* [id number] IMPRESSION: 1. The descending and sigmoid colon is collapsed. The wall appears mildly thickened. This appearance may reflect lack of distension versus mild colitis. 2. Otherwise unremarkable exam. No additional bowel thickening. No obstructing calculi or hydronephrosis. Radiation Dose CTDIVOL = (mGy): DLP = 1574.38 (mGy-cm)
[2020-06-15] MEDS: iohexol 300 mg/mL 100 mL Btl IV (15:31)
[2020-06-15 16:12] VITALS: BP 113/70; PULSE 63; RESP 14; O2SAT 99
== END 2020-06-15 16:14 | disposition home or self-care (01) ==
PROVIDERS: Emergency Provider Physician Assistant; PCP Family Medicine
DX: K52.9 Noninfective gastroenteritis and colitis, unspecified (principal); F17.290 Nicotine dependence, other tobacco product, uncomplicated
CPT/HCPCS: 12345; 74177; 76830; 76856; 80053; 81003; 83690; 84703; 85025; 87040; 96361; 96374; 96375; 99282; 99283; J2270; J2405; J7040; Q9967

== ENCOUNTER 2020-08-28 16:42 | Emergency (ER) | payer MEDICAID, SELFPAY ==
[2020-08-28 16:44] VITALS: BP 111/74; PULSE 84; RESP 16; TEMP 36.6; O2SAT 93; BMI 37.8
--- NOTE | 2020-08-28 16:54 | CTR_ITS ---
PROCEDURE INFORMATION: Exam: CT Abdomen And Pelvis With Contrast Exam date and time: 08/28/2020 5:39 PM Age: 29 years old Clinical indication: Abdominal pain; Additional info: Abd pain TECHNIQUE: Imaging protocol: Computed tomography of the abdomen and pelvis with intravenous contrast. Radiation optimization: All CT scans at this facility use at least one of these dose optimization techniques: automated exposure control; mA and/or kV adjustment per patient size (includes targeted exams where dose is matched to clinical indication); or iterative reconstruction. Contrast material: OMNI 300; Contrast volume: 95 ml; Contrast route: INTRAVENOUS (IV); COMPARISON: CT abdomen pelvis w con* [id number] 06/15/2020 3:22 PM RADIATION DOSE METRICS: Total DLP (mGy-cm): 1581.64 FINDINGS: Liver: The liver is mildly enlarged and demonstrates mild fatty infiltration changes. Gallbladder and bile ducts: Normal. No calcified stones. No ductal dilation. Pancreas: Normal. No ductal dilation. Spleen: Normal. No splenomegaly. Adrenals: Normal. No mass. Kidneys and ureters: A tiny renal stone is seen in the inferior pole of the left kidney. The kidneys appear otherwise normal. No ureteral stone or hydronephrosis. Stomach and bowel: Unremarkable. No obstruction. No mucosal thickening. Appendix: The appendix is normal. Intraperitoneal space: Unremarkable. No free air. No significant fluid collection. Vasculature: Unremarkable. No abdominal aortic aneurysm. Lymph nodes: Unremarkable. No enlarged lymph nodes. Urinary bladder: Unremarkable as visualized. Reproductive: The uterus and ovaries appear normal. Bones/joints: Unremarkable. No acute fracture. Soft tissues: A small umbilical hernia containing fat is appreciated. CT/CT abdomen pelvis w con* [id number] IMPRESSION: 1. No acute abnormality is seen in the abdomen or pelvis. 2. Mild hepatomegaly and hepatic steatosis. 3. Nonobstructing left kidney renal stone. Radiation Dose CTDIVOL = (mGy): DLP = 1581.64 (mGy-cm)
[2020-08-28 17:00] LABS: Basophils % 0.5 %; Eosinophils # 0.1 10^3/uL (0.0-0.8); Eosinophils % 1.6 %; Hematocrit 44.4 % (37.0-47.0); Hemoglobin 14.5 g/dL (11.5-15.3); Lymphocytes # 2.5 10^3/uL (0.8-4.8); Lymphocytes % 33.5 %; Mean Corpuscular HGB Conc 32.7 g/dL (30.0-36.0); Mean Corpuscular Volume 95.1 fL (81-99); Mean Platelet Volume 10.4 fL (7.4-10.4); Monocytes # 0.5 10^3/uL (0.2-0.9); Monocytes % 6.1 %; Neutrophils # 4.31 10^3/uL (1.8-7.7); Neutrophils % 57.6 %; Nucleated Red Blood Cells % 0 %; Platelet Count 221 10^3/cmm (130-400); Red Blood Count 4.67 10^6/uL (4.1-5.3); Red Cell Distribution Width 11.9 % (12.1-15.1); White Blood Count 7.5 10^3/uL (4.0-10.0)
--- NOTE | 2020-08-28 17:01 | ED_ITS ---
HPI - Abdominal Pain General: Chief Complaint: Abdominal Pain Stated Complaint: ABD PAIN Time Seen by Provider: 08/28/20 16:42 Source: patient and EMS Mode of arrival: EMS Limitations: no limitations History of Present Illness: HPI narrative: 29-year-old female states she has had right upper quadrant abdominal pain for roughly a year and a half. She states that it is typically worse with any type of pressure and states that her son had stepped on her abdomen earlier today and she had severe pain. States her pain is a 6 out of 10 currently. She had some nausea no vomiting. She denies any fever. Patient states that it seems to be improved when she lays flat. Associated Symptoms: Denies chills, dysuria and fever(s) Related Data: Date of Last Menstrual Period: 08/13/20 Review of Systems Const: Denies: fever(s), chills, body aches or change in appetite Eyes: Denies: blurry vision or eye discomfort ENMT: Denies: throat pain or dental pain Card: Denies: chest pain Resp: Denies: dyspnea GI: Reports: abdominal pain : Denies: dysuria Musc: Denies: neck pain or back pain Skin/Breast: Denies: rash Neuro: Denies: headache(s) Psych: Denies: depression Amarjit/Lymph: Denies: easy bruising All/Imm: Denies: urticaria PFSH ED PFSH: Family History Other Diabetes Heart disease Hypertension Stroke Social History Smoking and tobacco status: current every day smoker e-cigarettes E-Cigarette Details: vaporizer device and with nicotine Alcohol intake: current Alcohol intake frequency: 0-2 Drinks per Day Female Reproductive History: Date of last menstrual period: 08/13/20 Physical Exam Const: COMMON NORMALS: no acute distress, patient oriented x3 and healthy appearing HENMT: COMMON NORMALS: normocephalic and atraumatic HEAD & SCALP: normocephalic and atraumatic Eye: COMMON NORMALS: Equal, round and reactive pupils present and EOMs intact bilaterally PUPIL: Yes Equal, round and reactive pupils present Neck/C-Spine: COMMON NORMALS: full ROM and supple Chest: COMMONS NORMALS: normal inspection of the chest and normal palpation of entire chest wall Resp: COMMON NORMALS: normal respiratory effort, No retractions, No use of accessory muscles and clear to auscultation bilaterally AUSCULTATION: clear to auscultation bilaterally Cardio: COMMON NORMALS: regular rate, regular rhythm and No murmurs present (Cardio) RATE: regular rate RHYTHM: regular rhythm GI: COMMON NORMALS: Normal to inspection, nondistended, normoactive bowel sounds present, Soft to palpation, non-tender and no masses PALPATION: Yes Soft to palpation and Yes Tenderness to palpation present (GI) (diffuse) Extremity: COMMON NORMALS: normal to inspection and full ROM Neuro: COMMON NORMALS: patient oriented x3, moves all extremities and no focal motor deficits Psych: COMMON NORMALS: mental status grossly normal, Normal thought process present and cooperative THOUGHT PROCESS: Normal thought process present Skin: COMMON NORMALS: no rashes or lesions noted and no wounds GENERAL SKIN EXAM: no rashes or lesions noted Course Vital Signs: Vital signs: Vital Signs Temperature 97.9 F 08/28/20 16:44 Pulse Rate 84 08/28/20 16:44 Respiratory Rate 16 08/28/20 16:44 Blood Pressure 111/74 08/28/20 16:44 Pulse Oximetry 93 08/28/20 16:44 MDM - Abdominal Pain MDM Narrative: Medical decision making narrative: Patient presents here with abdominal pain. Patient's lab work and CT here are all normal. Her pain is been chronic and going on for over a year. Informed her she needs to follow-up with surgeon will put an order into case management for Dr. Davis. Patient has no signs of acute surgical abdomen here. She is to follow-up and return if worsening. She understands and agrees to the plan. Lab Data: Labs: Lab Results 08/28/20 08/28/20 08/28/20 Range/Units 16:20 16:20 16:20 WBC 7.5 (4.0-10.0) 10^3/ uL RBC 4.67 (4.1-5.3) 10^6/u L Hgb 14.5 (11.5-15.3) g/dL Hct 44.4 (37.0-47.0) % MCV 95.1 (81-99) fL MCH 31.0 (28.0-34.0) pg MCHC 32.7 (30.0-36.0) g/dL RDW 11.9 L (12.1-15.1) % Plt Count 221 (130-400) 10^3/c mm MPV 10.4 (7.4-10.4) fL Neut % (Auto) 57.6 % Lymph % (Auto) 33.5 % Kershaw % (Auto) 6.1 % Eos % (Auto) 1.6 % Baso % (Auto) 0.5 % Neut # (Auto) 4.31 (1.8-7.7) 10^3/u L Lymph # (Auto) 2.5 (0.8-4.8) 10^3/u L Kershaw # (Auto) 0.5 (0.2-0.9) 10^3/u L Eos # (Auto) 0.1 (0.0-0.8) 10^3/u L Baso # (Auto) 0.0 (0.0-0.1) 10^3/u L Nucleated RBC % (a uto) 0 % Nucleated RBCs # 0.0 /100WBC Sodium 139 (136-145) mmol/L Potassium 3.9 (3.5-5.1) mmol/L Chloride 102 (98-107) mmol/L Carbon Dioxide 24 (22-29) mmol/L Anion Gap 16.9 (5-19) BUN 16 (6-20) mg/dL Creatinine 0.7 (0.5-0.9) mg/dL GFR Calculation 99.6 (90-130) mL/min Glucose 110 (65-115) mg/dL Calculated Osmolal ity 290 (285-295) mOsm/k g Calcium 10.0 (8.5-10.5) mg/dL Total Bilirubin 0.3 (0.15-1.2) mg/dL AST 22 (0-32) U/L ALT 28 (0-33) U/L Alkaline Phosphata se 61 (35-105) IU/L Total Protein 7.0 (6.6-8.7) g/dL Albumin 4.4 (3.5-5.2) g/dL Globulin 2.6 (1.3-4.6) g/dL Lipase 24 (13-60) U/L HCG, Qual Negative (Negative) Imaging Data ^: CT Abd/Pel: Radiologist's impression: [facility] [address] [place] [address] CT Scan Report Signed Patient: Aparna TRUONG Unit #: [id number] : 1990 Age/Sex: 29 / F ADM Date: 08/28/20 Loc: ER Room/Bed: Attending Dr: Ordering Provider/Ordering MD: Gómez Zapata DO Date of Service: 08/28/20 Procedure(s): CT abdomen pelvis w con* [id number] Accession Number(s): [id number] Report Number: [id number] PROCEDURE INFORMATION: Exam: CT Abdomen And Pelvis With Contrast Exam date and time: 08/28/2020 5:39 PM Age: 29 years old Clinical indication: Abdominal pain; Additional info: Abd pain TECHNIQUE: Imaging protocol: Computed tomography of the abdomen and pelvis with intravenous contrast. Radiation optimization: All CT scans at this facility use at least one of these dose optimization techniques: automated exposure control; mA and/or kV adjustment per patient size (includes targeted exams where dose is matched to clinical indication); or iterative reconstruction. Contrast material: OMNI 300; Contrast volume: 95 ml; Contrast route: INTRAVENOUS (IV); COMPARISON: CT abdomen pelvis w con* [id number] 06/15/2020 3:22 PM RADIATION DOSE METRICS: Total DLP (mGy-cm): 1581.64 FINDINGS: Liver: The liver is mildly enlarged and demonstrates mild fatty infiltration changes. Gallbladder and bile ducts: Normal. No calcified stones. No ductal dilation. Pancreas: Normal. No ductal dilation. Spleen: Normal. No splenomegaly. Adrenals: Normal. No mass. Kidneys and ureters: A tiny renal stone is seen in the inferior pole of the left kidney. The kidneys appear otherwise normal. No ureteral stone or hydronephrosis. Stomach and bowel: Unremarkable. No obstruction. No mucosal thickening. Appendix: The appendix is normal. Intraperitoneal space: Unremarkable. No free air. No significant fluid collection. Vasculature: Unremarkable. No abdominal aortic aneurysm. Lymph nodes: Unremarkable. No enlarged lymph nodes. Urinary bladder: Unremarkable as visualized. Reproductive: The uterus and ovaries appear normal. Bones/joints: Unremarkable. No acute fracture. Soft tissues: A small umbilical hernia containing fat is appreciated. CT/CT abdomen pelvis w con* [id number] IMPRESSION: 1. No acute abnormality is seen in the abdomen or pelvis. 2. Mild hepatomegaly and hepatic steatosis. 3. Nonobstructing left kidney renal stone. Discharge Plan Discharge Patient Disposition: Home Clinical Impression: Abdominal pain Qualifiers: Abdominal location: generalized Qualified Code(s): R10.84 - Generalized abdominal pain Condition: Stable Prescriptions: No Action No Known Home Medications RF: 0 Discharge Orders: Discharge Order (Routine); Ordered 08/28/20 Ordered By: Reid Wyatt Referrals: Georgia Wood MD [Primary Care Provider] - 1-3 days Discharge Diet: Advance as tolerated Discharge Activity: Resume usual activity Patient Instructions: Abdominal Pain (ED) Coding Level of Care Code ED Oyster Tonger for Chg Fwd Exam Comprehensive
[2020-08-28] MEDS: ondansetron 2 mg/ML SDV 2 mL 4 MG IVP (17:14)
[2020-08-28 17:15] LABS: Alanine Aminotransferase 28 U/L (0-33); Albumin Level 4.4 g/dL (3.5-5.2); Alkaline Phosphatase 61 IU/L (35-105); Anion Gap 16.9 (5-19); Aspartate Amino Transferase 22 U/L (0-32); Blood Urea Nitrogen 16 mg/dL (6-20); Carbon Dioxide 24 mmol/L (22-29); Chloride 102 mmol/L (98-107); Globulin 2.6 g/dL (1.3-4.6); Glomerular Filtration Rate 99.6 mL/min (90-130); Glucose 110 mg/dL (65-115); Lipase 24 U/L (13-60); Osmolality Calculated 290 mOsm/kg (285-295); Potassium 3.9 mmol/L (3.5-5.1); Sodium 139 mmol/L (136-145); Total Bilirubin 0.3 mg/dL (0.15-1.2)
[2020-08-28] MEDS: sodium chloride 0.9% 1,000 ML 999 ML IV (17:15)
[2020-08-28] MEDS: ketorolac 30 mg/mL INJ IVP (17:15)
[2020-08-28 17:27] LABS: HCG, Serum Qual Negative (Negative)
[2020-08-28] MEDS: iohexol 300 mg/mL 100 mL Btl IV (17:41)
[2020-08-28] MEDS: metoclopramide 5 mg/mL SDV 2 mL 10 MG IVP (18:25)
[2020-08-28] MEDS: diphenhydrAMINE 50 mg/mL SDV 1mL 25 MG IVP (18:25)
[2020-08-28 18:32] LABS: Add Urine Microscopic? NO
[2020-08-28 18:46] VITALS: BP 110/80; PULSE 84; RESP 18; O2SAT 99
[2020-08-28 19:02] LABS: Bilirubin Urine Neg (Negative); Blood Urine Neg (Negative); Glucose Urine UA Norm (Normal); Ketones Urine Negative (Negative); Leukocyte Esterase Urine Negative (Negative); Nitrate Urine Negative (Negative); Protein Urine Neg (Negative); Specific Gravity, Urine 1.015 (1.005-1.030); Urine Appearance Clear (CLEAR); Urine Color Yellow (Yellow); Urobilinogen Urine Neg (Negative); pH Urine 5 (5-7)
--- NOTE | 2020-08-29 10:57 | DCPLANNER ---
manager business process had message to schedule a follow up appointment for patient with general surgery. manager business process called [facility], spoke with Marilee, gave clinic patients information. manager business process was told that patients information would be printed and reviewed. Clinic will call patient with appointment information.
--- NOTE | 2020-09-03 12:32 | DCPLANNER ---
Patient has a follow up appointment scheduled for Wednesday, September 09, 2020 at 9:[address] Davis at [facility]. Clinic will contact patient with appointment information.
--- NOTE | 2020-09-19 08:02 | DCPLANNER ---
Patient had follow up scheduled for 09.09.20 with [facility] - patient did attend
== END 2020-08-28 19:05 | disposition home or self-care (01) ==
PROVIDERS: Family Medicine; Emergency Provider Emergency Medicine; PCP Family Medicine
DX: R10.84 Generalized abdominal pain (principal); F17.290 Nicotine dependence, other tobacco product, uncomplicated
CPT/HCPCS: 12345; 74177; 80053; 81003; 83690; 84703; 85025; 96361; 96365; 96375; 99282; 99283; J1200; J1885; J2405; J2765; J7030; Q9967

== ENCOUNTER → 2020-09-23 16:54 | Outpatient (BNVA) | payer MEDICAID, SELFPAY | PROVIDERS: PCP Family Medicine; Visit Provider Nurse Practitioner Family | DX: J06.9 Acute upper respiratory infection, unspecified (principal) | CPT/HCPCS: 87635 ==

== ENCOUNTER → 2020-10-11 09:35 | Outpatient (BNVA) | payer MEDICAID, SELFPAY | PROVIDERS: PCP Nurse Practitioner; Visit Provider Obstetrics & Gynecology | DX: N73.0 Acute parametritis and pelvic cellulitis (principal); E28.2 Polycystic ovarian syndrome; N93.8 Other specified abnormal uterine and vaginal bleeding | CPT/HCPCS: 83001; 84146; 84443; 84702; 85025 ==

== ENCOUNTER → 2020-10-16 16:04 | Outpatient (BNVA) | payer MEDICAID, SELFPAY | PROVIDERS: PCP Nurse Practitioner; Visit Provider Obstetrics & Gynecology | DX: E28.2 Polycystic ovarian syndrome (principal) | CPT/HCPCS: 76830 ==

== ENCOUNTER → 2020-10-31 15:21 | Outpatient (BNVA) | payer MEDICAID, SELFPAY | PROVIDERS: PCP Nurse Practitioner; Visit Provider Obstetrics & Gynecology | DX: E34.9 Endocrine disorder, unspecified (principal) | CPT/HCPCS: 81025 ==

== ENCOUNTER 2022-04-05 10:06 | Emergency (ER) | payer BC, MEDICAID, SELFPAY ==
[2022-04-05 10:18] VITALS: BP 121/69; PULSE 103; RESP 20; TEMP 36.7; O2SAT 97; BMI 41.6
[2022-04-05 10:24] VITALS: BP 121/69; PULSE 99; RESP 15; TEMP 36.6; O2SAT 66
--- NOTE | 2022-04-05 10:26 | XRR_ITS ---
PROCEDURE INFORMATION: Exam: XR Chest Exam date and time: 04/05/2022 10:31 AM Age: 31 years old Clinical indication: Cough and shortness of breath and wheezing TECHNIQUE: Imaging protocol: XR of the chest. Views: 1 view. COMPARISON: CR XR chest 2V* [id number] 12/31/2019 9:13 PM FINDINGS: Lungs: Unremarkable. No consolidation. Pleural spaces: Unremarkable. No pleural effusion. No pneumothorax. Heart/Mediastinum: Unremarkable. No cardiomegaly. Bones/joints: Unremarkable. XR/XR chest 1V portable [id number] IMPRESSION: No acute findings.
--- NOTE | 2022-04-05 10:30 | ED_ITS ---
HPI - URI/Sore Throat General: Chief Complaint: Upper Respiratory Infection Stated Complaint: Congestion, Cough, and SOB Time Seen by Provider: 04/05/22 10:13 History of Present Illness: She presents with worsening cough and congestion. Said is getting harder to breathe now. Patient has been using Mucinex with good relief. Patient did not take Mucinex today so we get here what she sounds like. Patient denies any fever or chills. Has had some allergy problems and sinus drainage. Said felt like she down her chest now. Patient is a daily smoker. Patient has a history of chronic bronchitis. Associated symptoms: Reports nasal congestion; Deny abdominal pain, chills, chest pain, fever(s), headache(s), nausea or vomiting Review of Systems Const: Denies: fever(s), chills or body aches Eyes: Denies: eye discomfort ENMT: Reports: nasal congestion; Denies: throat pain Card: Denies: chest pain Resp: Reports: non-productive cough and chest congestion; Denies: dyspnea GI: Denies: abdominal pain, nausea or vomiting Skin/Breast: Denies: rash Neuro: Denies: headache(s) Psych: Denies: depression or suicidal ideation PFSH ED PFSH: Medical History PID (acute pelvic inflammatory disease) Family History Mother Diabetes Heart disease Thyroid condition Ovarian cancer, Onset Age: 26 Father Diabetes Hyperlipidemia Hypertension Grandmother Stroke paternal Family/Other Breast cancer, Onset Age: 24 maternal aunt Ovarian cancer, Onset Age: 30 maternal aunt Denies family history of Colon cancer Clotting disorder Anesthesia complication Bleeding disorder Uterine cancer Social History Smoking and tobacco status: current every day smoker e-cigarettes E-Cigarette Details: vaporizer device Alcohol intake: former Year of sobriety/quit date alcohol: 02/15 Female Reproductive History: Date of last menstrual period: 08/13/20 Physical Exam Const: COMMON NORMALS: no acute distress, patient oriented x3 and alert HENMT: COMMON NORMALS: normocephalic and external ears normal HEAD & SCALP: normocephalic NOSE: Nasal discharge present clear EXTERNAL EAR: Yes external ears normal Eye: COMMON NORMALS: EOMs intact bilaterally Neck/C-Spine: COMMON NORMALS: no JVD Resp: COMMON NORMALS: normal respiratory effort and No use of accessory muscles AUSCULTATION: rhonchi and wheezes Cardio: COMMON NORMALS: no JVD GI: INSPECTION: Yes normal to inspection Extremity: COMMON NORMALS: normal to inspection and full ROM Neuro: COMMON NORMALS: patient oriented x3 SENSORIUM/ORIENTATION: Yes alert Psych: COMMON NORMALS: mental status grossly normal Skin: COMMON NORMALS: no rashes or lesions noted GENERAL SKIN EXAM: no rashes or lesions noted Course Vital Signs: Vital signs: Vital Signs Temperature 98 F 04/05/22 11:05 Pulse Rate 66 04/05/22 11:05 Respiratory Rate 18 04/05/22 11:05 Blood Pressure 121/86 04/05/22 11:05 Pulse Oximetry 96 04/05/22 11:05 MDM - URI/Sore Throat Medical Decision Making Presents with bronchitis-like symptoms. She had allergies and nasal congestion over the last week or so. Said schedule tight to breathe now. Patient was given an inhaler and steroids here patient improved markedly with inhaler. P atient encouraged to quit smoking follow-up your primary care provider. Lab Data Radiology Impressions Chest X-Ray 04/05/22 10:26 IMPRESSION: No acute findings. Discharge Plan Discharge Patient Disposition: Home Clinical Impression: Bronchitis Condition: Stable Prescriptions: New Zithromax Z-Lane 250 mg tablet See Rx Instructions .ROUTE .COMPLEX Qty: 6 0RF Rx Instructions: take 500 mg today (day 1), then 250 mg for 4 days (days 2-5) prednisone 20 mg tablet 20 mg PO DAILY Qty: 7 0RF ProAir HFA 90 mcg/actuation HFA aerosol inhaler 2 inh inhalation Q4H PRN (Reason: shortness of breath or wheezing) Qty: 6.7 0RF Discharge Orders: Discharge ED (Routine); Ordered 04/05/22 Ordered By: Puma Hernandez Discharge Diet: Usual diet Discharge Activity: Resume usual activity Patient Instructions: Acute Bronchitis (ED) Activity Restrictions/Additional Instructions: Follow-up with medical provider as directed. Take medications as prescribed. Return to the ER or your medical provider if condition worsens. Please read and understand discharge instructions. If any questions ask please. Continue use of [id number] Mucinex. Cut back on your smoking. Coding Level of Care Code ED Biazzi [facility] Operator for Chg Fwd Exam Comprehensive
[2022-04-05] MEDS: predniSONE 20 mg Tablet 60 MG PO (10:34)
[2022-04-05 11:05] VITALS: BP 121/86; PULSE 66; RESP 18; TEMP 36.6; O2SAT 96
== END 2022-04-05 11:06 | disposition home or self-care (01) ==
PROVIDERS: Emergency Provider Nurse Practitioner Family
DX: J40 Bronchitis, not specified as acute or chronic (principal); F17.290 Nicotine dependence, other tobacco product, uncomplicated
CPT/HCPCS: 71045; 99283; J3535; J7512

== ENCOUNTER → 2022-04-08 17:00 | Outpatient (BNVA) | payer BC, MEDICAID, SELFPAY | PROVIDERS: Visit Provider Emergency Medicine | DX: J40 Bronchitis, not specified as acute or chronic (principal); R06.02 Shortness of breath; F17.200 Nicotine dependence, unspecified, uncomplicated | CPT/HCPCS: 71046 ==

== ENCOUNTER → 2022-05-04 11:05 | Outpatient (BNVA) | payer BC, MEDICAID, SELFPAY | PROVIDERS: Referring Provider Emergency Medicine; Visit Provider Emergency Medicine | DX: M25.561 Pain in right knee (principal) | CPT/HCPCS: 73562 ==

== ENCOUNTER → 2023-07-07 10:38 | Outpatient (BNVA) | payer BC, MEDICAID, SELFPAY | PROVIDERS: Visit Provider Emergency Medicine | DX: Z20.822 Contact with and (suspected) exposure to COVID-19 (principal) | CPT/HCPCS: 87426 ==

== ENCOUNTER → 2023-12-04 14:14 | Outpatient (BNVA) | payer BC, MEDICAID, SELFPAY | PROVIDERS: Visit Provider Nurse Practitioner Family | DX: R68.89 Other general symptoms and signs (principal) | CPT/HCPCS: 87400 ==

== ENCOUNTER → 2024-03-01 15:11 | Outpatient (BNVA) | payer BC, MEDICAID, SELFPAY | PROVIDERS: Visit Provider Emergency Medicine | DX: B34.9 Viral infection, unspecified (principal); J02.9 Acute pharyngitis, unspecified | CPT/HCPCS: 87071; 87400; 87880 ==